=== PATIENT | female | born 1960 | race Native Hawaiian/Other Pacific Islander ===

== ENCOUNTER 2016-12-19 13:23 | Outpatient (CLI) | payer OTHER ==
[~2016-12-19 13:23] MED LIST: GLUCOPHAGE1000 MG PO
[2016-12-19 13:52] LABS: PLATELET COUNT 226 K/uL (152-353)
[2016-12-19 14:12] LABS: POTASSIUM 3.6 mmol/L (3.6-5.2); SODIUM 138 mmol/L (136-145)
== END 2016-12-19 14:30 | disposition home or self-care (01) ==
LOC: LABW 13:23
PROVIDERS: Family Medicine
DX: I10 Essential (primary) hypertension (principal); E05.80 Other thyrotoxicosis without thyrotoxic crisis or storm
CPT/HCPCS: 36415; 80053; 81000; 84439; 84443; 84481; 85027

== ENCOUNTER 2017-03-27 20:43 | Emergency (ER) | payer OTHER ==
[~2017-03-27] VITALS: Ht 160 cm; Wt 98.4 kg
[2017-03-27 21:30] LABS: PLATELET COUNT 188 K/uL (152-353)
[2017-03-27 21:37] LABS: POTASSIUM 3.7 mmol/L (3.6-5.2); SODIUM 137 mmol/L (136-145)
[2017-03-28 00:02] VITALS: BP 108/56; TEMP 98.1
== END 2017-03-28 00:03 | disposition home or self-care (01) ==
LOC: ED 20:43
DX: K29.70 Gastritis, unspecified, without bleeding (principal); R07.2 Precordial pain; R16.1 Splenomegaly, not elsewhere classified
CPT/HCPCS: 36415; 80053; 81000; 82150; 83690; 85027; 96361; 96374; 96376; 99284; J1885; J2405; J3490

== ENCOUNTER 2017-05-14 15:40 | Inpatient (IN) | payer OTHER ==
[~2017-05-14] VITALS: Ht 162.6 cm; Wt 92.6 kg
[2017-05-14 17:53] VITALS: BP 141/70; TEMP 100; Ht 162.6 cm; Wt 92.6 kg
[2017-05-14 18:38] LABS: PLATELET COUNT 142 K/uL (152-353)
[2017-05-14 20:00] VITALS: BP 93/60; TEMP 99.5
[2017-05-14 20:43] LABS: POTASSIUM 3.8 mmol/L (3.6-5.2); SODIUM 136 mmol/L (136-145)
[2017-05-15 00:26] VITALS: BP 135/64; TEMP 98.8
[2017-05-15 03:48] VITALS: BP 111/61; TEMP 100.4
[2017-05-15 05:28] LABS: PLATELET COUNT 108 K/uL (152-353)
[2017-05-15 06:02] LABS: POTASSIUM 3.9 mmol/L (3.6-5.2); SODIUM 136 mmol/L (136-145)
[2017-05-15 08:00] VITALS: BP 127/64; TEMP 100.2
[2017-05-15 11:36] VITALS: BP 143/72; TEMP 100.6
[2017-05-15 16:00] VITALS: BP 148/69; TEMP 100.1
[2017-05-15 20:00] VITALS: BP 138/54; TEMP 102.6
[2017-05-16] VITALS (10 sets, daily range): BP systolic 121–150; BP diastolic 56–76; TEMP 98.1–98.7
[2017-05-16 07:17] LABS: POTASSIUM 3.4 mmol/L (3.6-5.2); SODIUM 139 mmol/L (136-145)
[2017-05-16 07:33] LABS: PARTIAL THROMBOPLASTIN TIME 32.7 SECONDS (24.5-33.6)
[2017-05-16 08:51] LABS: PLATELET COUNT 95 K/uL (152-353)
[2017-05-16 16:10] LABS: PLATELET COUNT 92 K/uL (152-353)
[2017-05-17] VITALS: BP 182/87; TEMP 98.1
[2017-05-17 04:00] VITALS: BP 154/66; TEMP 98.3
[2017-05-17 05:26] LABS: PLATELET COUNT 86 K/uL (152-353)
[2017-05-17 05:30] LABS: POTASSIUM 3.8 mmol/L (3.6-5.2); SODIUM 137 mmol/L (136-145)
[2017-05-17 08:00] VITALS: BP 133/64; TEMP 98.1
[2017-05-17 12:08] VITALS: BP 104/52; TEMP 98.3
[2017-05-17 15:50] VITALS: BP 135/51; TEMP 99
[2017-05-17 15:56] LABS: PLATELET COUNT 84 K/uL (152-353)
[2017-05-17 20:25] VITALS: BP 146/58; TEMP 98.6
[2017-05-18] VITALS: BP 124/46; TEMP 98.6
[2017-05-18 04:00] VITALS: BP 136/64; TEMP 98.8
[2017-05-18 05:02] LABS: PLATELET COUNT 84 K/uL (152-353)
[2017-05-18 08:00] VITALS: BP 123/64; TEMP 97.8
[2017-05-18 08:03] LABS: POTASSIUM 3.8 mmol/L (3.6-5.2); SODIUM 143 mmol/L (136-145)
[2017-05-18 12:00] VITALS: BP 124/52; TEMP 98.8
[2017-05-18 16:00] VITALS: BP 112/51; TEMP 98
[2017-05-18 20:00] VITALS: BP 122/58; TEMP 98.4
[2017-05-19] VITALS: BP 102/52; TEMP 98.8
[2017-05-19 04:00] VITALS: BP 132/48; TEMP 98.6
[2017-05-19 06:49] LABS: PLATELET COUNT 98 K/uL (152-353)
[2017-05-19 06:57] LABS: POTASSIUM 3.3 mmol/L (3.6-5.2); SODIUM 140 mmol/L (136-145)
[2017-05-19 08:14] VITALS: BP 148/52; TEMP 99
[2017-05-19 12:14] VITALS: BP 133/63; TEMP 98.6
[2017-05-19 16:08] VITALS: BP 119/61; TEMP 97.6
[2017-05-19 20:02] VITALS: BP 135/66; TEMP 98.1
[2017-05-20] VITALS: BP 137/72; TEMP 98.7
[2017-05-20 04:00] VITALS: BP 113/54; TEMP 98.3
[2017-05-20 06:34] LABS: PLATELET COUNT 97 K/uL (152-353)
[2017-05-20 06:49] LABS: POTASSIUM 3.2 mmol/L (3.6-5.2); SODIUM 141 mmol/L (136-145)
[2017-05-20 08:00] VITALS: BP 147/61; TEMP 98.9
[2017-05-20 11:50] VITALS: BP 112/73; TEMP 98.8
[2017-05-20 16:00] VITALS: BP 133/51; TEMP 98.9
[2017-05-20 19:59] VITALS: BP 125/51; TEMP 99
[2017-05-21] VITALS: BP 161/62; TEMP 98.8
[2017-05-21 04:00] VITALS: BP 145/59; TEMP 98.1
[2017-05-21 05:53] LABS: POTASSIUM 3.1 mmol/L (3.6-5.2); SODIUM 142 mmol/L (136-145)
[2017-05-21 06:39] LABS: PLATELET COUNT 116 K/uL (152-353)
[2017-05-21 08:00] VITALS: BP 171/66; TEMP 98.7
[2017-05-21 16:00] VITALS: BP 158/52; TEMP 98.6
[2017-05-21 20:00] VITALS: BP 147/60; TEMP 99.3
[2017-05-22] VITALS: BP 152/68; TEMP 98.7
[2017-05-22 04:00] VITALS: BP 137/51; TEMP 98.7
[2017-05-22 05:15] LABS: PLATELET COUNT 173 K/uL (152-353)
[2017-05-22 05:48] LABS: POTASSIUM 3.6 mmol/L (3.6-5.2); SODIUM 139 mmol/L (136-145)
[2017-05-22 08:00] VITALS: BP 155/59; TEMP 98.5
[2017-05-22 11:42] VITALS: BP 136/57; TEMP 98.9
[2017-05-22 16:00] VITALS: BP 143/60; TEMP 99.2
== END 2017-05-22 19:03 | disposition home or self-care (01) | DRG 815 ==
LOC: MED/SURG 15:40
PROVIDERS: ADMIT Family Medicine
PROC: 0DJ08ZZ Inspection of Upper Intestinal Tract, Via Natural or Artificial Opening Endoscopic (ICD-10-PCS; principal; 2017-05-16)
PROC: 0DJD8ZZ Inspection of Lower Intestinal Tract, Via Natural or Artificial Opening Endoscopic (ICD-10-PCS; 2017-05-16)
DX: R59.0 Localized enlarged lymph nodes (principal); C85.83 Other specified types of non-Hodgkin lymphoma, intra-abdominal lymph nodes; R10.12 Left upper quadrant pain; B19.20 Unspecified viral hepatitis C without hepatic coma; K59.09 Other constipation; I10 Essential (primary) hypertension; Z86.73 Personal history of transient ischemic attack (TIA), and cerebral infarction without residual deficits; K44.9 Diaphragmatic hernia without obstruction or gangrene; R10.13 Epigastric pain; K57.90 Diverticulosis of intestine, part unspecified, without perforation or abscess without bleeding; E86.0 Dehydration; D72.818 Other decreased white blood cell count; E11.9 Type 2 diabetes mellitus without complications; E03.8 Other specified hypothyroidism; D69.6 Thrombocytopenia, unspecified; D64.9 Anemia, unspecified; E66.8 Other obesity; Z91.14 Patient's other noncompliance with medication regimen; F32.89 Other specified depressive episodes
CPT/HCPCS: 36415; 80053; 81000; 83605; 83735; 83880; 84443; 85027; 85384; 85610; 85730; 86703; 86803; 87015; 87040; 87045; 87205; 87324; 87328; 87329; 87449; 87899; 94640; 94664; 94760; 96365; 96366; 96367; 96375; G0432; J1170; J1885; J2001; J2175; J2405; J2543; J2550; J2704; J2930; Q9963

== ENCOUNTER 2017-05-29 16:48 | Outpatient (CLI) | payer OTHER ==
[2017-05-29 17:24] LABS: PLATELET COUNT 223 K/uL (152-353)
== END 2017-05-29 17:50 | disposition home or self-care (01) ==
LOC: LABW 16:48
PROVIDERS: Family Medicine
DX: R59.0 Localized enlarged lymph nodes (principal)
CPT/HCPCS: 36415; 85027

== ENCOUNTER 2018-11-04 23:09 | Emergency (ER) | payer OTHER ==
[~2018-11-04] VITALS: Ht 162.6 cm; Wt 104.3 kg
[2018-11-04 23:33] VITALS: TEMP 97.8
[2018-11-04 23:52] LABS: PLATELET COUNT 164 K/uL (152-353)
[2018-11-05 00:06] LABS: POTASSIUM 3.6 mmol/L (3.6-5.2)
[2018-11-05 00:35] LABS: PARTIAL THROMBOPLASTIN TIME 24.3 SECONDS (24.5-33.6)
[2018-11-05 10:03] VITALS: BP 128/59
== END 2018-11-05 10:03 | disposition home or self-care (01) ==
LOC: ED 23:09
PROVIDERS: Student in an Organized Health Care Education/Training Program
DX: R07.89 Other chest pain (principal); M54.9 Dorsalgia, unspecified; R10.13 Epigastric pain
CPT/HCPCS: 36415; 80053; 83690; 84484; 85027; 85610; 85730; 93005; 96374; 96375; 96376; 99284; J2270; J2405; Q9963

== ENCOUNTER 2018-11-11 08:56 | Outpatient (CLI) | payer OTHER ==
[2018-11-11 09:09] LABS: PLATELET COUNT 164 K/uL (152-353)
[2018-11-11 09:30] LABS: POTASSIUM 3.5 mmol/L (3.6-5.2)
== END 2018-11-11 19:16 | disposition home or self-care (01) ==
LOC: LABW 08:56
PROVIDERS: Nurse Practitioner Family
DX: E05.90 Thyrotoxicosis, unspecified without thyrotoxic crisis or storm (principal); R53.83 Other fatigue; E55.9 Vitamin D deficiency, unspecified; E78.2 Mixed hyperlipidemia
CPT/HCPCS: 36415; 80053; 80061; 82306; 82607; 84443; 85027

== ENCOUNTER 2018-12-17 16:15 | Outpatient (CLI) | payer OTHER | END 2018-12-17 19:50 | disposition home or self-care (01) | LOC: LABW 16:15 | DX: E05.90 Thyrotoxicosis, unspecified without thyrotoxic crisis or storm (principal) | CPT/HCPCS: 36415; 84443 ==

== ENCOUNTER 2019-01-10 15:17 | Outpatient (CLI) | payer OTHER ==
[2019-01-10 15:45] LABS: PLATELET COUNT 192 K/uL (152-353)
[2019-01-10 16:03] LABS: POTASSIUM 3.4 mmol/L (3.6-5.2)
== END 2019-01-10 23:43 | disposition home or self-care (01) ==
LOC: LABW 15:17
PROVIDERS: Nurse Practitioner Family
DX: E05.90 Thyrotoxicosis, unspecified without thyrotoxic crisis or storm (principal)
CPT/HCPCS: 36415; 80053; 84443; 85027

== ENCOUNTER 2019-01-22 18:24 | Emergency (ER) | payer OTHER ==
[~2019-01-22] VITALS: Ht 162.6 cm; Wt 98.9 kg
[2019-01-22 19:07] LABS: PLATELET COUNT 187 K/uL (152-353)
[2019-01-22 19:25] LABS: POTASSIUM 2.8 mmol/L (3.6-5.2); SODIUM 142 mmol/L (136-145)
[2019-01-23 00:50] VITALS: BP 115/55; TEMP 98
== END 2019-01-23 00:51 | disposition short-term general hospital (02) ==
LOC: ED 18:24
PROVIDERS: Emergency Medicine Emergency Medical Services
DX: R11.2 Nausea with vomiting, unspecified (principal); R10.13 Epigastric pain; E05.91 Thyrotoxicosis, unspecified with thyrotoxic crisis or storm
CPT/HCPCS: 80053; 81000; 82150; 82550; 83690; 84439; 84443; 84484; 85027; 93005; 96365; 96366; 96375; 96376; 99285; J1170; J1720; J2405; J2550; J2765; J3490; Q9963

== ENCOUNTER 2020-07-21 15:44 | Observation (INO) | payer OTHER ==
[~2020-07-21] VITALS: Ht 162.6 cm; Wt 96.9 kg
--- NOTE | 2020-07-21 17:30 | NUR ---
DR. LOPES HERE TO MAKE ROUNDS, DR. LOPES STATES TO APPLY A THIN LAYER OF NITROPASTE Q6H TO LT RING FINGER FROM MIDDLE PHALANGE TO TIP OF FINGER, SHE ORDERED TO GIVE TORADOL 30MG IV Q8H X1 NOW, ASPIRIN 325 QD X1 NOW, ADD MORPHINE 1MG IV Q4H PRN FOR PAIN, DR. LOPES STATES TO DISREGARD ORDER FOR A CONSULT FOR VASCULAR DOCTOR, SHE ALSO ORDERED TO CANCEL CHEST XRAY THAT WAS ORDERED ON ADMISSION, INFORMED DR. LOPES THAT US COULD NOT BE PREFROMED UNTIL IN THE MORNING SHE STATES THAT IS OK, DR. LOPES STATES TO NOTIFY HER IF BP FALLS BELOW 100/60, DR. CERON STATES TO RESTART ALL HOME MEDICATIONS, NO FURTHER ORDERS GIVEN AT THIS TIME
[2020-07-21 17:31] LABS: PLATELET COUNT 215 K/uL (152-353)
[2020-07-21 17:45] LABS: PARTIAL THROMBOPLASTIN TIME 24.8 SECONDS (24.5-33.6)
[2020-07-21 17:51] LABS: POTASSIUM 3.7 mmol/L (3.6-5.2); SODIUM 138 mmol/L (136-145)
[2020-07-21 19:53] VITALS: BP 107/59; TEMP 98.1
[2020-07-21 19:56] VITALS: BP 113/63; TEMP 98.6; BMI 36.3
[2020-07-21] MEDS ORDERED: VENLAFAXINE150 M1 PO (20:44)
[2020-07-21] MEDS ORDERED: HYDR10TA47A PO (20:46)
[2020-07-21] MEDS ORDERED: METH5TAB6 PO (20:47)
[2020-07-21] MEDS ORDERED: METO25TA4 PO (20:48)
[2020-07-21] MEDS ORDERED: TRIA37.541 PO (20:53)
[2020-07-21 23:41] VITALS: BP 116/62; TEMP 98.1
[2020-07-22 04:16] VITALS: BP 100/62; TEMP 98.3
[2020-07-22 08:00] VITALS: BP 99/50; TEMP 98.2
[2020-07-22 12:00] VITALS: BP 111/59; TEMP 98.6
--- NOTE | 2020-07-22 12:05 | NUR ---
INFORMED DR. LOPES OF PT'S PROGRESS THIS AM, PT STATES SHE IS NOT HAVING PAIN IN THE FINGER AT THIS TIME AND WE ARE WAITING ULTRASOUND FROM RADIOLOGY, DR. LOPES STATES TO REMOVE THE NITROPASTE FROM FINGER AT THIS TIME UNTIL ULTRASOUND IS COMPLETE, NO FURTHER ORDERS AT THIS TIME
[2020-07-22 16:01] VITALS: BP 146/68; TEMP 97.7
--- NOTE | 2020-07-22 17:30 | NUR ---
SPOKE TO DR. LOPES REGARDING PT'S CONDITION AND RESULTS OF US, DR. LOPES STATES TO APPLY NITROPASTE TO FINGER NOW AND EDUCATE PT ON HOW TO APPLY IT AT HOME, NO FURTHER ORDERS AT THIS TIME
--- NOTE | 2020-07-22 18:03 | NUR ---
IN ROOM TO APPLY NITROPASTE TO LT RING FINGER AND DEMONSTRATE HOW TO APPLY AT HOME, THIN LAYER OF NITROPASTE APPLIED TO FINGER WITH TEGADERM INTACT WITH PT ASSISTANCE, PT VERBALIZED UNDERSTANDING
--- NOTE | 2020-07-22 18:04 | NUR ---
SPOKE TO DR. LOPES REGARDING PT HAVING PAIN TO LT RING FINGER AFTER APPLICATIN OF NITROPASTE, DR. LOPES STATES TO GIVE HER HER PRN HYDROCODONE NOW, NO FURTHER ORDERS AT THIS TIME
[2020-07-22 18:58] VITALS: BP 164/74; TEMP 97.4; BMI 33.5
== END 2020-07-22 20:00 | disposition home or self-care (01) ==
LOC: MED/SURG 15:44
PROVIDERS: ADMIT Family Medicine; ATTEND Family Medicine
DX: I82.602 Acute embolism and thrombosis of unspecified veins of left upper extremity (principal)
CPT/HCPCS: 80053; 81000; 82550; 84443; 84484; 85027; 85379; 85610; 85730; 86140; 87040; 87635; 93005; 94760; 96374; 99220; G0378; G0379; J1885; J2270; J2405; U0003

== ENCOUNTER 2020-11-09 09:20 | Inpatient (IN) | payer OTHER ==
[~2020-11-09] VITALS: Ht 160 cm; Wt 100.3 kg
[2020-11-09] VITALS (8 sets, daily range): BP systolic 112–173; BP diastolic 56–84; TEMP 98.7–99.7; Ht 160 cm; Wt 100.3 kg
[~2020-11-09 09:20] MED LIST changes: +HYDR10TA47A PO; +METH5TAB6 PO; +METO25TA4 PO; +TRIA37.541 PO; +VENLAFAXINE150 M1 PO
--- NOTE | 2020-11-09 10:50 | NUR ---
PATIENT ADMITTED FROM OFFICE. PATIENT TAKEN TO ROOM 1118. IV 20G STARTED TO THE RIGHT FOREARM X1 ATTEMPT. SHIFT ASSESSMENT COMPLETED. PATIENT IS AOX4. PATIENT ORIENTED TO ROOM AND CALL LIGHT.
[2020-11-09 11:51] LABS: PLATELET COUNT 132 K/uL (152-353)
[2020-11-09] MEDS ORDERED: VENLAFAXINE150 M1 PO (12:07)
[2020-11-09 12:09] LABS: POTASSIUM 3.1 mmol/L (3.6-5.2)
[2020-11-09] MEDS ORDERED: GABA300C2 PO (12:11)
[2020-11-09] MEDS ORDERED: VITAMIN D-31000 UNI1 PO (12:14)
--- NOTE | 2020-11-09 17:15 | NUR ---
UNIT OF CONVALESCENT PLASMA STARTED AT THIS TIME. PATIENT ALSO REPORTS SUBSTERNAL CHEST PAIN THAT IS CONSTANT AND NOT ONLY EXACERBATING BY COUGHING. ORDER PLACED FOR CARDIAC ENZYMES AND EKG. MARIANNE NAVAS NOTIFIED AND NEW ORDERS GIVEN FOR PATIENT TO HAVE SERIAL CARDIAC ENZYMES AND EKG. TUSSINEX 5 ML PO X1, TORADOL 15 MG X1 DOSE IV PUSH. HOME MEDICATIONS TO BE CONTINUED. ORDERS PLACED AT THIS TIME.
--- NOTE | 2020-11-09 22:35 | NUR ---
PT STTING UP IN BED WATCHING TV AT THIS TIME WITH SIDE RAILS UP TIMES TWO WHILE PM MEDS GIVEN. PT TOLERATED WELL. NS INFUSING AT 125 ML/HR. COMBIVENT 4 PUFFS GIVEN AT THSI TIME. PT GOT UP TO 2000 ON THE INCENTIVE SPIROMETER. NAD NOTED AT THIS TIME WITH CALL LIGHT WITHIN REACH.
--- NOTE | 2020-11-10 00:46 | NUR ---
RAD AT BEDSIDE TO RETRIEVE PT WITH WHEELCHAIR FOR CXR.
--- NOTE | 2020-11-10 00:56 | NUR ---
PT BACK IN BED FROM RADIOLOGY. NAD NOTED.
[2020-11-10 04:00] VITALS: BP 143/73; TEMP 98.8
[2020-11-10 05:36] LABS: PLATELET COUNT 119 K/uL (152-353)
[2020-11-10 05:57] LABS: POTASSIUM 4.1 mmol/L (3.6-5.2); SODIUM 141 mmol/L (136-145)
[2020-11-10 08:00] VITALS: BP 136/69; TEMP 101.1
--- NOTE | 2020-11-10 09:30 | NUR ---
UPDATED DR. LOPES ON PT'S MORNING LABS AND XRAY, CLARIFIED WITH DR. LOPES THAT REMDESIVIR WAS NOT ORDERED AND SHE STATES THAT THE PT'S O2 SAT ARE NORMAL THEREFORE DOES NOT QUALIFY FOR REMDESVIR, SHE STATES TO MAKE SURE PT IS RECEIVING METHAMAZOL AND BETA LUCIO FOR HER HYPERTHYROIDISM AND PT IS TAKING BOTH MEDICATIONS AT THIS TIME, NO FURTHER ORDERS GIVEN AT THIS TIME
[2020-11-10 12:00] VITALS: BP 135/64; TEMP 98.8
[2020-11-10 16:04] VITALS: BP 120/49; TEMP 100.1
--- NOTE | 2020-11-10 16:05 | NUR ---
PT EVENING V/S COMPLETED. PT NOTED TO HAVE TEMP 100.1. NOTIFIED DR. LOPES AWAITING NEW ORDERS.
--- NOTE | 2020-11-10 16:20 | NUR ---
REC'D ORDERS TO GIVE PT IBUPROPHEN 600MG PO EVERY 8 HOURS PRN FEVER/PAIN.
--- NOTE | 2020-11-10 17:25 | NUR ---
PT TEMP NOTED TO BE 99.4 ORAL AT THIS TIME. PT DENIES ANY PAIN/HEADACHE/NAUSEA. PT REPORTS FEELING BETTER THAN SHE DID THIS MORNING.
--- NOTE | 2020-11-10 19:50 | NUR ---
PT AWAKE SITTING UP IN BED TALKING ON PHONE, NO S/S OF ACUTE DISTRESS NOTED, PT DENIES ANY NEEDS, ON ROOM AIR, IV INTACT WITH FLUID ONGOING. REMAINS ON ISOLATION FOR COVID-19. WILL MONITOR CLOSELY, RAILS UP, BED IN LOW POSITION, CALL LIGHT IN REACH.
[2020-11-10 20:06] VITALS: BP 108/57; TEMP 98.7
--- NOTE | 2020-11-10 21:30 | NUR ---
PT AWAKE SITTING UP IN BED TALKING ON PHONE WITH NO S/S OF PROBLEMS OR DISTRESS NOTED, IV INTACT TO R FA WITH NS INFUSING AT 125ML/HR, RESP RATE NONLABORED, PT ON ROOM AIR, TELEMETRY IN USE WITH RATE IN 60s. GAVE NIGHTLY MEDS AND ALSO GAVE ZOFRAN 4MG SLOW IVP PRN PER PT REQUEST FOR NAUSEA. WILL MONITOR CLOSELY, RAILS UP, BED IN LOW POSITION, CALL LIGHT IN REACH, ENCOURAGED TO CALL NEEDED.
[2020-11-11] VITALS: BP 119/60; TEMP 98.4
--- NOTE | 2020-11-11 00:05 | NUR ---
PT FOUND RESTING IN BED ON L SIDE WITH EYES CLOSED, NO S/S OF PAIN OR DISTRESS NOTED. AROUSES TO RECRUITMENT ADVERTISING MANAGER CALLING HER NAME, DENIES ANY NEEDS AT THIS TIME. MEDICATION GIVEN SEEN ON AUG. TELEMETRY IN USE, IV INTACT WITH FLUID ONGOING, WILL MONITOR CLOSELY, RAILS UP, BED IN LOW POSITION, CALL LIGHT IN REACH.
--- NOTE | 2020-11-11 02:26 | NUR ---
PT FOUND RESTING IN BED WITH EYES CLOSED AND SNORING NOTED LAYING ON L SIDE, NO S/S OF PAIN OR DISTRESS NOTED, IV INTACT TO R FA WITH NS INFUSING AT 125ML/HR, ON ROOM AIR, TELEMETRY IN USE, WILL MONITOR, RAILS UP, BED IN LOW POSITION, CALL LIGHT IN REACH.
[2020-11-11 04:00] VITALS: BP 146/74; TEMP 99
--- NOTE | 2020-11-11 05:12 | NUR ---
RESTING WITH EYES CLOSED ON HER SIDE WITH NO S/S OF DISTRESS NOTED, WILL MONITOR CLOSELY, RAILS UP, BED IN LOW POSITION, CALL LIGHT IN REACH.
--- NOTE | 2020-11-11 07:45 | NUR ---
PT NOTED TO BE LAYING IN BED RESTING QUIETLY WITH EYES CLOSED. IVF INFUSING WITHOUT DIFFICULTY. NAD NOTED.
[2020-11-11 08:00] VITALS: BP 142/68; TEMP 99.4
[2020-11-11 08:31] LABS: PLATELET COUNT 118 K/uL (152-353)
--- NOTE | 2020-11-11 08:35 | NUR ---
LATA, PCT REPORTS PT C/O CHEST PAIN AND SOB. IN TO ASSESS PT. PT C/O SHARP PAIN TO MID CHEST AREA, PT POINTS TO MID CHEST AREA, AND FEELING SOB. PT NOTED TO HAVE WHEEZING BILAT THROUGHT OUT ALL LUNGS [place]. PT O2 SATS NOTED TO BE 99% ON RA AT THIS TIME. IVF INFUSING WITHOUT DIFFICULTY. DR. LOPES NOTIFIED REC'D ORDERS TO OBTAIN TROP, CPK, EKG, CXR, ADD PULMICORT 2 PUFFS Q12HR AND SOLUMEDROL 60MG IV Q12HR. WILL CON'T TO MONITOR PT.
[2020-11-11 08:50] LABS: POTASSIUM 4.5 mmol/L (3.6-5.2)
--- NOTE | 2020-11-11 09:39 | NUR ---
EKG COMPLETED AND GIVEN TO NURSE AT THIS TIME.
[2020-11-11 12:00] VITALS: BP 151/66; TEMP 98.4
[2020-11-11 16:00] VITALS: BP 130/60; TEMP 98.9
[2020-11-11 20:00] VITALS: BP 128/62; TEMP 98.5
--- NOTE | 2020-11-11 21:35 | NUR ---
PT AWAKE WATCHING TV WITH NO DISTRESS NOTED, ON ROOM AIR, RESP RATE NONLABORED, IV INTACT TO R FA WITH NS INFUSING AT 125ML/HR, TELEMETRY IN USE, TALKATIVE WITH BUTTON MAKER AND INSTALLER. GAVE NIGHTLY MEDS WITH NO PROBLEMS, WILL MONITOR, RAILS UP, BED IN LOW POSITION, CALL LIGHT IN REACH.
--- NOTE | 2020-11-11 23:00 | NUR ---
AWAKE WATCHING TV WITH NO S/S OF DISTRESS NOTED, PT DENIES ANY PROBLEMS, WILL MONITOR CLOSELY.
[2020-11-12 00:11] VITALS: BP 130/48; TEMP 98.6
--- NOTE | 2020-11-12 00:20 | NUR ---
RESTING WITH EYES CLOSED IN BED, NO S/S OF PAIN OR DISTRESS NOTED, RESP RATE NONLABORED, TELEMETRY IN USE, IV INTACT WITH FLUID ONGOING, WILL MONITOR CLOSELY, RAILS UP, BED IN LOW POSITION, CALL LIGHT IN REACH.
--- NOTE | 2020-11-12 01:25 | NUR ---
PT CALLED NURSE STATES SHE NEEDS SOMETHING FOR NAUSEA. FOUND ALERT AND ORIENTED LAYING IN LOW STEWART'S POSITION IN BED WITH NO S/S OF ACUTE DISTRESS NOTED, IV INTACT TO R FA WITH NS INFUSING AT 125ML/HR, ON ROOM AIR, RESP RATE NONLABORED. PT STATES SHE IS HAVING NAUSEA WHICH SHE ALSO HAS AT HOME THINKS IT IS HER ACID REFLUX AND WHAT SHE ATE FOR SUPPER LAST NIGHT. GAVE ZOFRAN 4MG SLOW IVP PRN. WILL MONITOR CLOSELY, RAILS UP, BED IN LOW POSITION, CALL LIGHT IN REACH, ENCOURAGED TO CALL NEEDED. PT STATES SHE HAS NOT HAD ANY DIARRHEA SINCE YESTERDAY AFTERNOON. TELEMETRY IN USE.
--- NOTE | 2020-11-12 02:00 | NUR ---
PT RESTING WITH EYES CLOSED, NO S/S OF PAIN OR DISTRESS NOTED, IV INTACT WITH FLUID ONGOING, RESP RATE NONLABORED ON ROOM AIR, TELEMETRY IN USE WITH RATE IN LOW 60s, REMAINS ON ISOLATION FOR COVID-19. RAILS UP, BED IN LOW POSITION, CALL LIGHT IN REACH.
[2020-11-12 04:00] VITALS: BP 126/58; TEMP 98.4
--- NOTE | 2020-11-12 05:30 | NUR ---
RESTING IN BED WITH EYES CLOSED, NO S/S OF PAIN OR DISTRESS NOTED, IV INTACT WITH FLUID ONGOING, RESP RATE NONLABORED, WILL MONITOR, RAILS UP, BED IN LOW POSITION.
--- NOTE | 2020-11-12 06:26 | NUR ---
PT AWAKE LOOKING AT HER PHONE, C/O "BUSTING HEADACHE" THAT SHE RATES A "10" ON SCALE, GAVE IBUPROFEN 600MG PO PRN PER PT REQUEST. WILL MONITOR CLOSELY, ENCOURAGED TO CALL IF MEDICATION DOES NOT HELP, RAILS UP, BED IN LOW POSITION, CALL LIGHT IN REACH.
[2020-11-12 08:20] VITALS: BP 133/55; TEMP 98.5
--- NOTE | 2020-11-12 08:36 | NUR ---
LATE ENTRY: 11/11/20 CORRECTION FOR VITAL SIGNS AT 1830 WERE FOLLOWS:130/69 HR-66,RR-23,TEMP 98.7 ORAL.
--- NOTE | 2020-11-12 12:40 | NUR ---
REVIEWED DISCHARGE INSTRUCTIONS WITH PATIENT AND INSTRUCTED PATIENT TO AVOID LARGE GROUPS AND TO WEAR MASK AT ALL TIMES WHEN IN PRESENCE OF OTHERS, EDUCATED PT ON COVID, PT V/O UNDERSTANDING AND DENIES ANY QUESTIONS OR C/O AT THIS TIME. ENSURED AND CONFIRMED PATIENT HAD A N-95 MASK. NAD NOTED WITH PATIENT. ASSISTED PATIENT TO FAMILY'S POV WITHOUT DIFFICULTY.
== END 2020-11-12 12:45 | disposition home or self-care (01) | DRG 177 ==
LOC: MED/SURG 09:20
PROVIDERS: ADMIT Family Medicine; ATTEND Family Medicine
PROC: 30233K1 Transfusion of Nonautologous Frozen Plasma into Peripheral Vein, Percutaneous Approach (ICD-10-PCS; principal; 2020-11-09)
DX: U07.1 COVID-19 (principal); J12.82 Pneumonia due to coronavirus disease 2019; E66.8 Other obesity; Z68.37 Body mass index [BMI] 37.0-37.9, adult; R11.2 Nausea with vomiting, unspecified; E05.80 Other thyrotoxicosis without thyrotoxic crisis or storm; R09.02 Hypoxemia; D64.89 Other specified anemias; D72.818 Other decreased white blood cell count; R19.7 Diarrhea, unspecified; R51.9 Headache, unspecified
CPT/HCPCS: 36415; 36430; 80053; 82550; 82728; 83735; 84100; 84443; 84481; 84484; 85027; 85379; 86140; 86900; 86901; 87015; 87040; 87045; 87324; 87328; 87329; 87449; 87635; 87899; 93005; 94667; 94668; 94760; 96360; 96361; 96365; 96367; 96372; 96375; J0456; J0696; J1650; J1885; J2405; J2930; P9017; U0003

== ENCOUNTER 2020-11-18 12:56 | Outpatient (CLI) | payer OTHER ==
[~2020-11-18 12:56] MED LIST changes: +GABA300C2 PO; +VITAMIN D-31000 UNI1 PO
== END 2020-11-18 22:00 | disposition home or self-care (01) ==
LOC: RAD 12:56
PROVIDERS: ATTEND Nurse Practitioner Family
DX: U07.1 COVID-19 (principal)

== ENCOUNTER 2021-01-05 10:10 | Outpatient (CLI) | payer OTHER ==
[2021-01-05 11:08] LABS: PLATELET COUNT 251 K/uL (152-353)
[2021-01-05 11:29] LABS: POTASSIUM 3.4 mmol/L (3.6-5.2)
== END 2021-01-05 21:30 | disposition home or self-care (01) ==
LOC: LABW 10:10
PROVIDERS: ATTEND Nurse Practitioner Family
DX: E05.90 Thyrotoxicosis, unspecified without thyrotoxic crisis or storm (principal); R53.83 Other fatigue; E55.9 Vitamin D deficiency, unspecified; E78.2 Mixed hyperlipidemia; M54.6 Pain in thoracic spine; J44.9 Chronic obstructive pulmonary disease, unspecified
CPT/HCPCS: 36415; 80053; 80061; 82306; 82607; 84443; 85027

== ENCOUNTER 2021-04-07 15:49 | Outpatient (CLI) | payer OTHER | END 2021-04-07 20:20 | disposition home or self-care (01) | LOC: RAD 15:49 | PROVIDERS: ATTEND Nurse Practitioner Family | DX: J20.9 Acute bronchitis, unspecified (principal) ==

== ENCOUNTER 2021-08-31 09:29 | Outpatient (CLI) | payer BC | END 2021-08-31 19:38 | disposition home or self-care (01) | LOC: CT 09:29 | PROVIDERS: ATTEND Nurse Practitioner Family | DX: Z12.31 Encounter for screening mammogram for malignant neoplasm of breast (principal); F17.200 Nicotine dependence, unspecified, uncomplicated ==

== ENCOUNTER 2021-12-19 17:44 | Emergency (ER) | payer BC ==
[~2021-12-19] VITALS: Ht 160 cm; Wt 95.3 kg
[2021-12-19 18:43] LABS: PLATELET COUNT 300 K/uL (152-353)
[2021-12-19 18:50] LABS: POTASSIUM 3.9 mmol/L (3.6-5.2)
[2021-12-19 21:55] VITALS: BP 140/86; TEMP 98.6
== END 2021-12-19 21:55 | disposition home or self-care (01) ==
LOC: ED 17:44
PROVIDERS: Emergency Medicine Emergency Medical Services
DX: R19.7 Diarrhea, unspecified (principal); A04.5 Campylobacter enteritis
CPT/HCPCS: 36415; 80053; 81002; 83690; 85027; 87015; 87045; 87324; 87328; 87329; 87449; 87899; 96360; 96374; 96375; 99284; J1885; J2270; J2405; J3490; Q9963

== ENCOUNTER 2021-12-27 10:14 | Outpatient (CLI) | payer BC | END 2021-12-27 18:51 | disposition home or self-care (01) | LOC: US 10:14 | PROVIDERS: ATTEND Nurse Practitioner Family | DX: N28.89 Other specified disorders of kidney and ureter (principal) ==

== ENCOUNTER 2022-03-10 09:05 | Outpatient (CLI) | payer BC | END 2022-03-10 22:08 | disposition home or self-care (01) | LOC: RAD 09:05 | PROVIDERS: ATTEND Nurse Practitioner Family | DX: Z01.818 Encounter for other preprocedural examination (principal); R13.10 Dysphagia, unspecified; K74.60 Unspecified cirrhosis of liver; E66.9 Obesity, unspecified; K75.4 Autoimmune hepatitis; M54.6 Pain in thoracic spine | CPT/HCPCS: 36415; 82105; 82784; 82977; 83516; 85610; 86037; 86235; 86706; 86803; 87340 ==

== ENCOUNTER 2022-05-25 08:10 | Outpatient (CLI) | payer BC | END 2022-05-25 18:59 | disposition home or self-care (01) | LOC: US 08:10 | PROVIDERS: ATTEND Nurse Practitioner Family | DX: R10.11 Right upper quadrant pain (principal) ==

== ENCOUNTER 2022-06-16 08:03 | Outpatient (CLI) | payer BC | END 2022-06-16 22:31 | disposition home or self-care (01) | LOC: NM 08:03 | PROVIDERS: ATTEND Nurse Practitioner Family | DX: R11.2 Nausea with vomiting, unspecified (principal) | CPT/HCPCS: A9541 ==

== ENCOUNTER 2022-10-09 09:45 | Outpatient (CLI) | payer OTHER | END 2022-10-09 21:11 | disposition home or self-care (01) | LOC: RAD 09:45 | PROVIDERS: ATTEND Nurse Practitioner Family | DX: Z12.31 Encounter for screening mammogram for malignant neoplasm of breast (principal); R51.9 Headache, unspecified; R20.0 Anesthesia of skin ==

== ENCOUNTER 2022-11-03 13:40 | Outpatient (CLI) | payer OTHER | END 2022-11-03 19:17 | disposition home or self-care (01) | LOC: MRI 13:40 | PROVIDERS: ATTEND Neurological Surgery | DX: M47.22 Other spondylosis with radiculopathy, cervical region (principal) ==

== ENCOUNTER 2023-01-17 14:51 | Outpatient (CLI) | payer OTHER | END 2023-01-17 21:05 | disposition home or self-care (01) | LOC: LABW 14:51 | PROVIDERS: ATTEND Nurse Practitioner Family | DX: N28.89 Other specified disorders of kidney and ureter (principal) | CPT/HCPCS: 82570; 84156 ==

== ENCOUNTER 2023-01-19 09:46 | Outpatient (CLI) | payer OTHER | END 2023-01-19 19:40 | disposition home or self-care (01) | LOC: US 09:46 | PROVIDERS: ATTEND Nurse Practitioner Family | DX: N28.89 Other specified disorders of kidney and ureter (principal) ==

== ENCOUNTER 2023-03-13 10:46 | Outpatient (CLI) | payer OTHER | END 2023-03-13 20:46 | disposition home or self-care (01) | LOC: MRI 10:46 | PROVIDERS: ATTEND Neurological Surgery | DX: M47.26 Other spondylosis with radiculopathy, lumbar region (principal) ==